=== PATIENT | female | born 1940 | race African-American/Black ===

== ENCOUNTER 2023-05-21 13:32 | Inpatient (IN) | payer MEDICARE, OTHER, SELFPAY ==
[2023-05-21] MEDS ORDERED: Morphine 4 MG/ML VIAL ONE ×2 (14:16→17:52)
[2023-05-21] MEDS ORDERED: Ondansetron PF 4 MG/2 ML Vial ONE (14:16)
[2023-05-21 14:41] LABS: ALT (SGPT) 159 U/L (8-55); AST (SGOT) 298 U/L (5-34); Albumin 3.6 g/dL (3.4-4.8); Alkaline Phosphatase 973 U/L (40-110); Anion Gap 19 mmol/L (10-20); BUN (Urea Nitrogen) 34 mg/dL (9.8-20.1); Calc. Creatinine Clearance 0 mL/min (70-130); Calcium 9.2 mg/dL (7.8-10.44); Carbon Dioxide 17 mmol/L (23-31); Chloride 108 mmol/L (98-107); Estimated GFR 28; Globulin 3.9 g/dL (2.4-3.5); Glucose 165 mg/dL (83-110); Magnesium 1.8 mg/dL (1.6-2.6); Potassium 5.1 mmol/L (3.5-5.1); Protein, Total 7.5 g/dL (5.8-8.1); Sodium 139 mmol/L (136-145)
[2023-05-21 14:52] LABS: SARS-CoV-2 NAA Rapid Test Not Detected (NotDetected)
[2023-05-21 14:52] LABS: Lipase 2053 U/L (8-78)
[2023-05-21 15:02] LABS: Troponin I 0.014 ng/mL (< 0.028)
[2023-05-21 15:04] LABS: Hematocrit 39.1 % (34.9-44.5); Hemoglobin 12.2 g/dL (12.0-15.5); Mean Corpuscular HGB CONC 31.2 g/dL (32.0-36.0); Mean Corpuscular Hemoglobin 27.5 pg (27.0-33.0); Mean Corpuscular Volume 88.1 fl (81.6-98.3); Mean Platelet Volume 11.2 fl (7.4-10.4); Platelet Count 255 10x3/uL (150-450); RBC Distribution Width 14.2 % (11.5-14.5); Red Blood Cell (RBC) Count 4.44 10x6/uL (3.90-5.03); White Blood Cell (WBC) Count 9.1 10x3/uL (3.5-10.5)
[2023-05-21 15:53] LABS: Bilirubin Neg (Negative); Blood, Urine 10 (Negative); Glucose, Urine (Dipstick) Normal (Negative); Ketone, Urine Negative (Negative); Leukocyte Negative (Negative); Nitrite Negative (Negative); Protein, Urine (Dipstick) 15 mg/dl (Neg-Trace); Specific Gravity, Urine 1.005 (1.005-1.030); Urobilinogen Normal mg/dL (Less than 2)
[2023-05-21 15:57] LABS: Clarity Hazy (Clear)
[2023-05-21 16:07] LABS: MDiff Complete? YES
[2023-05-21 16:43] LABS: Bacteria/HPF 2+ HPF (None Seen); CAUTI Indications for Culture Pelvic or flank pain; RBC/HPF 0-3 HPF (0-3); Squamous Epithelial 0-3 HPF (0-3); WBC/HPF 0-3 HPF (0-3)
[2023-05-21 16:45] LABS: Urine Culture Reflex No No
[2023-05-21] MEDS ORDERED: Acetaminophen 325 MG TAB PO PRN (17:09)
[2023-05-21] MEDS ORDERED: HYDROcodone/Acetaminophen 5/325 mg Tablet PO PRN (17:09)
[2023-05-21] MEDS ORDERED: Morphine 4 MG/ML VIAL SLOW IVP PRN (17:09)
[2023-05-21 17:34] LABS: Band 20 % (5-11); Lymphocytes 8 % (21-51); Neutrophil 72 % (42-75)
[2023-05-21 17:35] LABS: Platelet Adequacy Comment Appears Adequate; Platelet Clumps SLIGHT; RBC Morph Comment Within Normal Limits
[2023-05-21] MEDS ORDERED: Piperacillin/Tazobactam 3.375 GM VIAL ONE (17:53)
[2023-05-21] MEDS ORDERED: Pantoprazole 40 MG VIAL ONE (17:54)
[2023-05-21] MEDS: Lactated Ringer's 1,000 ML IV SCH (19:10)
[2023-05-21] MEDS ORDERED: Morphine 4 MG/ML VIAL SLOW IVP SCH (20:00)
[2023-05-21 21:28] VITALS: BMI 25.9
[2023-05-21] MEDS: Piperacillin/Tazobactam 3.375 GM in Sodium Chloride 0.9% 100 ML IVPB SCH (21:54)
[2023-05-21] MEDS: Senokot S 8.6-50 MG TAB PO SCH ×2 (21:55→22:07)
[2023-05-22] MEDS ORDERED: FLU VACC QS2023(65UP)/MF59C/PF 60 MCG/0.5 ML SYRINGE IM ONE (03:45)
[2023-05-22 04:18] LABS: Hematocrit 34.2 % (34.9-44.5); MDiff Complete? YES; Mean Corpuscular HGB CONC 32.2 g/dL (32.0-36.0); Mean Corpuscular Hemoglobin 28.1 pg (27.0-33.0); Mean Corpuscular Volume 87.2 fl (81.6-98.3); Mean Platelet Volume 11.2 fl (7.4-10.4); Platelet Count 230 10x3/uL (150-450); RBC Distribution Width 14.5 % (11.5-14.5); Red Blood Cell (RBC) Count 3.92 10x6/uL (3.90-5.03); White Blood Cell (WBC) Count 23.1 10x3/uL (3.5-10.5)
[2023-05-22 04:31] LABS: ALT (SGPT) 250 U/L (8-55); AST (SGOT) 409 U/L (5-34); Alkaline Phosphatase 802 U/L (40-110); Anion Gap 18 mmol/L (10-20); BUN (Urea Nitrogen) 30 mg/dL (9.8-20.1); Bilirubin, Total 3.2 mg/dL (0.2-1.2); Calc. Creatinine Clearance 26 mL/min (70-130); Calcium 8.3 mg/dL (7.8-10.44); Carbon Dioxide 20 mmol/L (23-31); Chloride 110 mmol/L (98-107); Estimated GFR 29; Globulin 3.4 g/dL (2.4-3.5); Glucose 149 mg/dL (83-110); Potassium 5.7 mmol/L (3.5-5.1); Protein, Total 6.4 g/dL (5.8-8.1); Sodium 142 mmol/L (136-145)
[2023-05-22 04:39] LABS: Platelet Adequacy Comment Appears Adequate; RBC Morph Comment Within Normal Limits
[2023-05-22 04:40] LABS: Band 24 % (5-11); Lymphocytes 6 % (21-51); Monocytes 4 % (0-10); Neutrophil 66 % (42-75)
[2023-05-22] MEDS: Lactated Ringer's 1,000 ML IV SCH ×3 (05:54→19:04)
[2023-05-22] MEDS: Piperacillin/Tazobactam 3.375 GM in Sodium Chloride 0.9% 100 ML IVPB SCH ×2 (06:01→14:33)
[2023-05-22] MEDS: Senokot S 8.6-50 MG TAB PO SCH ×2 (08:57→21:20)
[2023-05-22] MEDS: Polyethylene Glycol 3350 17 GM Packet PO SCH (08:58)
[2023-05-22] MEDS ORDERED: Dextrose 50% Abboject 50 ML SYRINGE SLOW IVP SCH (09:01)
[2023-05-22] MEDS ORDERED: Vancomycin Dose by Levels Sliding Scale (Wt <71) FS SCH (09:15)
[2023-05-22] MEDS ORDERED: Furosemide 20 MG (2 mL) VIAL SLOW IVP SCH (09:15)
[2023-05-22] MEDS ORDERED: Insulin Regular 300 UNITS/3 ML VIAL IVP SCH (09:15)
[2023-05-22] MEDS ORDERED: VANCOMYCIN 1.25 GM/250 ML BAG 1.25 GM in Premix 1 BAG IVPB SCH (09:30)
[2023-05-22] MEDS ORDERED: Iopamidol-M 300 61% 15 ML VIAL ONE (11:40)
[2023-05-22] MEDS ORDERED: Indomethacin 50 MG SUPP ONE (11:40)
[2023-05-22] MEDS ORDERED: Ondansetron ORAL SOLN. 4 MG/5 ML UDCUP PO PRN (17:18)
[2023-05-22 17:58] LABS: Anion Gap 18 mmol/L (10-20); BUN (Urea Nitrogen) 31 mg/dL (9.8-20.1); Calc. Creatinine Clearance 24 mL/min (70-130); Calcium 8.4 mg/dL (7.8-10.44); Carbon Dioxide 17 mmol/L (23-31); Chloride 109 mmol/L (98-107); Estimated GFR 26; Glucose 150 mg/dL (83-110); Potassium 5.2 mmol/L (3.5-5.1); Sodium 139 mmol/L (136-145)
[2023-05-22] MEDS ORDERED: Acetaminophen 500 MG TAB PO SCH (18:00)
[2023-05-22] MEDS ORDERED: Scopolamine 1 mg/72 hour Patch TD SCH (18:00)
[2023-05-22] MEDS: Sodium Chloride 0.45% 1,000 ML IV SCH (19:03)
[2023-05-22] MEDS: Acetaminophen 500 MG TAB PO SCH (21:19)
[2023-05-23] MEDS: Sodium Chloride 0.45% 1,000 ML IV SCH ×2 (00:16→07:36)
[2023-05-23] MEDS: Piperacillin/Tazobactam 3.375 GM in Sodium Chloride 0.9% 100 ML IVPB SCH ×2 (04:15→14:07)
[2023-05-23 05:36] LABS: #Eosinphils 0.3 10x3/uL (0.0-0.5); #Monocytes 0.5 10x3/uL (0.0-1.1); #Neutrophils 12.2 10x3/uL (1.5-8.4); %Basophils 0.3 % (0.0-2.0); %Eosinophils 2.2 % (0.0-6.0); %Lymphocytes 10.1 % (18.0-47.0); %Monocytes 3.5 % (0.0-10.0); %Neutrophils 82.7 % (40.0-75.0); Hematocrit 32.6 % (34.9-44.5); Hemoglobin 10.3 g/dL (12.0-15.5); Mean Corpuscular HGB CONC 31.6 g/dL (32.0-36.0); Mean Corpuscular Hemoglobin 27.2 pg (27.0-33.0); Mean Corpuscular Volume 86.2 fl (81.6-98.3); Mean Platelet Volume 11.5 fl (7.4-10.4); Platelet Count 225 10x3/uL (150-450); RBC Distribution Width 14.6 % (11.5-14.5); Red Blood Cell (RBC) Count 3.78 10x6/uL (3.90-5.03); White Blood Cell (WBC) Count 14.8 10x3/uL (3.5-10.5)
[2023-05-23 05:46] LABS: ALT (SGPT) 158 U/L (8-55); AST (SGOT) 139 U/L (5-34); Albumin 2.7 g/dL (3.4-4.8); Alkaline Phosphatase 650 U/L (40-110); Anion Gap 14 mmol/L (10-20); BUN (Urea Nitrogen) 32 mg/dL (9.8-20.1); Calc. Creatinine Clearance 23 mL/min (70-130); Calcium 7.8 mg/dL (7.8-10.44); Carbon Dioxide 20 mmol/L (23-31); Chloride 108 mmol/L (98-107); Estimated GFR 25; Globulin 3.2 g/dL (2.4-3.5); Glucose 90 mg/dL (83-110); Potassium 4.3 mmol/L (3.5-5.1); Protein, Total 5.9 g/dL (5.8-8.1); Sodium 138 mmol/L (136-145)
[2023-05-23] MEDS: Acetaminophen 500 MG TAB PO SCH ×5 (07:51→21:53)
[2023-05-23] MEDS: Polyethylene Glycol 3350 17 GM Packet PO SCH (07:52)
[2023-05-23] MEDS: Senokot S 8.6-50 MG TAB PO SCH ×2 (07:52→21:54)
[2023-05-23] MEDS ORDERED: EPINEPHrine 1 MG/ML AMP ONE (08:55)
[2023-05-23] MEDS ORDERED: Bupivacaine PF 0.5% 30 ML VIAL ONE (08:55)
[2023-05-23] MEDS: traMADol HCl 50 MG TAB PO PRN (10:29)
[2023-05-23] MEDS: Ondansetron ODT 4 MG TAB PO PRN (10:30)
[2023-05-23] MEDS ORDERED: Morphine 2 MG/ML VIAL SLOW IVP PRN ×2 (13:22→13:23)
[2023-05-23] MEDS ORDERED: Ketorolac Tromethamine 30 MG (1 mL) VIAL IVP SCH (14:00)
[2023-05-24] MEDS: Piperacillin/Tazobactam 3.375 GM in Sodium Chloride 0.9% 100 ML IVPB SCH (03:05)
[2023-05-24 04:51] LABS: ALT (SGPT) 117 U/L (8-55); AST (SGOT) 87 U/L (5-34); Albumin 2.5 g/dL (3.4-4.8); Alkaline Phosphatase 486 U/L (40-110); Anion Gap 16 mmol/L (10-20); BUN (Urea Nitrogen) 34 mg/dL (9.8-20.1); Bilirubin, Total 1.5 mg/dL (0.2-1.2); Calc. Creatinine Clearance 23 mL/min (70-130); Calcium 7.9 mg/dL (7.8-10.44); Carbon Dioxide 16 mmol/L (23-31); Chloride 108 mmol/L (98-107); Estimated GFR 24; Globulin 3.2 g/dL (2.4-3.5); Glucose 179 mg/dL (83-110); Potassium 4.9 mmol/L (3.5-5.1); Protein, Total 5.7 g/dL (5.8-8.1); Sodium 135 mmol/L (136-145)
[2023-05-24 05:03] LABS: Hematocrit 32.5 % (34.9-44.5); Hemoglobin 10.3 g/dL (12.0-15.5); Mean Corpuscular HGB CONC 31.7 g/dL (32.0-36.0); Mean Corpuscular Volume 85.3 fl (81.6-98.3); Mean Platelet Volume 11.6 fl (7.4-10.4); Platelet Count 261 10x3/uL (150-450); RBC Distribution Width 14.6 % (11.5-14.5); Red Blood Cell (RBC) Count 3.81 10x6/uL (3.90-5.03); White Blood Cell (WBC) Count 22.4 10x3/uL (3.5-10.5)
[2023-05-24 05:42] LABS: Band 24 % (5-11); Lymphocytes 3 % (21-51); Metamyelocyte 3 % (0-0); Monocytes 1 % (0-10); Reactive Lymphocytes 1 % (0-10)
[2023-05-24 05:43] LABS: Neutrophil 67 % (42-75)
[2023-05-24 05:46] LABS: Platelet Adequacy Comment Appears Adequate
[2023-05-24 05:47] LABS: MDiff Complete? YES
[2023-05-24] MEDS ORDERED: Amoxicillin/Potassium Clav 875 MG TAB PO SCH (09:00)
[2023-05-24] MEDS: Acetaminophen 500 MG TAB PO SCH ×4 (09:40→20:16)
[2023-05-24] MEDS: Senokot S 8.6-50 MG TAB PO SCH ×2 (09:40→20:19)
[2023-05-24] MEDS: Polyethylene Glycol 3350 17 GM Packet PO SCH (09:40)
[2023-05-24] MEDS: Ondansetron PF 4 MG/2 ML Vial IVP PRN (10:08)
[2023-05-24] MEDS ORDERED: Enoxaparin 40 MG (0.4 mL) SYRINGE SC SCH (11:00)
[2023-05-24] MEDS: Sodium Chloride 0.9% 1,000 ML IV SCH ×2 (13:51→20:20)
[2023-05-24] MEDS ORDERED: LevoFLOXacin 750 MG TAB PO SCH (14:00)
[2023-05-25 04:17] LABS: Mean Corpuscular HGB CONC 32.3 g/dL (32.0-36.0); Mean Corpuscular Hemoglobin 27.2 pg (27.0-33.0); Mean Corpuscular Volume 84.5 fl (81.6-98.3); Mean Platelet Volume 11.9 fl (7.4-10.4); Platelet Count 284 10x3/uL (150-450); RBC Distribution Width 14.6 % (11.5-14.5); Red Blood Cell (RBC) Count 3.67 10x6/uL (3.90-5.03); White Blood Cell (WBC) Count 25.8 10x3/uL (3.5-10.5)
[2023-05-25] MEDS: Sodium Chloride 0.9% 1,000 ML IV SCH ×2 (04:23→11:17)
[2023-05-25 04:46] LABS: Band 20 % (5-11); Lymphocytes 1 % (21-51); Metamyelocyte 1 % (0-0); Monocytes 5 % (0-10); Neutrophil 73 % (42-75)
[2023-05-25 04:49] LABS: Platelet Adequacy Comment Appears Adequate
[2023-05-25 04:50] LABS: MDiff Complete? YES
[2023-05-25] MEDS: Acetaminophen 500 MG TAB PO SCH ×5 (09:08→20:57)
[2023-05-25] MEDS: Polyethylene Glycol 3350 17 GM Packet PO SCH ×2 (09:08→09:17)
[2023-05-25] MEDS: Senokot S 8.6-50 MG TAB PO SCH ×3 (09:08→20:57)
[2023-05-25] MEDS: Enoxaparin 30 MG (0.3 mL) SYRINGE SC SCH (09:08)
[2023-05-25] MEDS ORDERED: metroNIDAZOLE 500 MG in Premix 1 BAG IVPB SCH (14:00)
[2023-05-25] MEDS: cefTRIAXone\\ROCEPHIN 2 GM in Sodium Chloride 0.9% 100 ML IVPB SCH (16:08)
[2023-05-25] MEDS: traMADol HCl 50 MG TAB PO PRN (20:56)
[2023-05-25] MEDS: Ondansetron ODT 4 MG TAB PO PRN (20:57)
[2023-05-25] MEDS ORDERED: LevoFLOXacin 500 MG TAB PO SCH (21:00)
[2023-05-26 04:57] LABS: #Basophils 0.1 10x3/uL (0.0-0.2); #Eosinphils 0.2 10x3/uL (0.0-0.5); #Neutrophils 21.4 10x3/uL (1.5-8.4); %Basophils 0.2 % (0.0-2.0); %Eosinophils 0.6 % (0.0-6.0); %Lymphocytes 7.8 % (18.0-47.0); %Monocytes 4.1 % (0.0-10.0); %Neutrophils 86.3 % (40.0-75.0); Hematocrit 31.9 % (34.9-44.5); Hemoglobin 10.5 g/dL (12.0-15.5); Mean Corpuscular HGB CONC 32.9 g/dL (32.0-36.0); Mean Corpuscular Volume 85.1 fl (81.6-98.3); Mean Platelet Volume 11.6 fl (7.4-10.4); Platelet Count 293 10x3/uL (150-450); Red Blood Cell (RBC) Count 3.75 10x6/uL (3.90-5.03); White Blood Cell (WBC) Count 24.9 10x3/uL (3.5-10.5)
[2023-05-26] MEDS ORDERED: LevoFLOXacin 500 MG TAB PO SCH (06:00)
[2023-05-26] MEDS: Enoxaparin 30 MG (0.3 mL) SYRINGE SC SCH (08:43)
[2023-05-26] MEDS: Acetaminophen 500 MG TAB PO SCH ×4 (08:44→21:24)
[2023-05-26] MEDS: Polyethylene Glycol 3350 17 GM Packet PO SCH (08:44)
[2023-05-26] MEDS: Senokot S 8.6-50 MG TAB PO SCH ×2 (08:44→21:24)
[2023-05-26] MEDS: cefTRIAXone\\ROCEPHIN 2 GM in Sodium Chloride 0.9% 100 ML IVPB SCH (17:09)
[2023-05-26] MEDS: Sodium Chloride 0.9% 1,000 ML IV SCH (17:09)
[2023-05-26] MEDS: traMADol HCl 50 MG TAB PO PRN (21:22)
[2023-05-27 03:59] LABS: #Basophils 0.1 10x3/uL (0.0-0.2); #Eosinphils 0.2 10x3/uL (0.0-0.5); #Neutrophils 15.6 10x3/uL (1.5-8.4); %Basophils 0.3 % (0.0-2.0); %Eosinophils 0.9 % (0.0-6.0); %Monocytes 5.4 % (0.0-10.0); %Neutrophils 82.8 % (40.0-75.0); Hematocrit 28.8 % (34.9-44.5); Hemoglobin 9.2 g/dL (12.0-15.5); Mean Corpuscular HGB CONC 31.9 g/dL (32.0-36.0); Mean Corpuscular Hemoglobin 27.5 pg (27.0-33.0); Mean Corpuscular Volume 86.2 fl (81.6-98.3); Mean Platelet Volume 11.6 fl (7.4-10.4); Platelet Count 303 10x3/uL (150-450); Red Blood Cell (RBC) Count 3.34 10x6/uL (3.90-5.03); White Blood Cell (WBC) Count 18.9 10x3/uL (3.5-10.5)
[2023-05-27] MEDS: Acetaminophen 500 MG TAB PO SCH ×4 (08:15→22:15)
[2023-05-27] MEDS: Enoxaparin 30 MG (0.3 mL) SYRINGE SC SCH (08:16)
[2023-05-27] MEDS: Senokot S 8.6-50 MG TAB PO SCH ×2 (08:17→22:16)
[2023-05-27] MEDS: Polyethylene Glycol 3350 17 GM Packet PO SCH (08:17)
[2023-05-27] MEDS: Sodium Chloride 0.9% 1,000 ML IV SCH (10:33)
[2023-05-27] MEDS: cefTRIAXone\\ROCEPHIN 2 GM in Sodium Chloride 0.9% 100 ML IVPB SCH (17:24)
[2023-05-27] MEDS: Ondansetron PF 4 MG/2 ML Vial IVP PRN (22:15)
[2023-05-28 05:20] LABS: #Basophils 0.1 10x3/uL (0.0-0.2); #Eosinphils 0.3 10x3/uL (0.0-0.5); #Monocytes 1.1 10x3/uL (0.0-1.1); #Neutrophils 10.9 10x3/uL (1.5-8.4); %Basophils 0.4 % (0.0-2.0); %Eosinophils 1.7 % (0.0-6.0); %Lymphocytes 13.6 % (18.0-47.0); %Monocytes 7.5 % (0.0-10.0); %Neutrophils 74.6 % (40.0-75.0); Hematocrit 31.1 % (34.9-44.5); Hemoglobin 10.2 g/dL (12.0-15.5); Mean Corpuscular HGB CONC 32.8 g/dL (32.0-36.0); Mean Corpuscular Hemoglobin 28.5 pg (27.0-33.0); Mean Corpuscular Volume 86.9 fl (81.6-98.3); Mean Platelet Volume 11.5 fl (7.4-10.4); Platelet Count 315 10x3/uL (150-450); RBC Distribution Width 15.1 % (11.5-14.5); Red Blood Cell (RBC) Count 3.58 10x6/uL (3.90-5.03); White Blood Cell (WBC) Count 14.6 10x3/uL (3.5-10.5)
[2023-05-28] MEDS: Senokot S 8.6-50 MG TAB PO SCH ×2 (08:49→20:13)
[2023-05-28] MEDS: Polyethylene Glycol 3350 17 GM Packet PO SCH (08:49)
[2023-05-28] MEDS: Acetaminophen 500 MG TAB PO SCH ×4 (09:27→20:12)
[2023-05-28] MEDS: Enoxaparin 30 MG (0.3 mL) SYRINGE SC SCH (09:28)
[2023-05-28] MEDS: cefTRIAXone\\ROCEPHIN 2 GM in Sodium Chloride 0.9% 100 ML IVPB SCH (16:23)
[2023-05-29 03:55] LABS: #Basophils 0.1 10x3/uL (0.0-0.2); #Eosinphils 0.2 10x3/uL (0.0-0.5); #Monocytes 1.2 10x3/uL (0.0-1.1); #Neutrophils 10.4 10x3/uL (1.5-8.4); %Basophils 0.5 % (0.0-2.0); %Eosinophils 1.5 % (0.0-6.0); %Lymphocytes 14.4 % (18.0-47.0); %Monocytes 8.3 % (0.0-10.0); %Neutrophils 72.6 % (40.0-75.0); Hematocrit 31.1 % (34.9-44.5); Mean Corpuscular HGB CONC 32.2 g/dL (32.0-36.0); Mean Corpuscular Hemoglobin 27.7 pg (27.0-33.0); Mean Corpuscular Volume 86.1 fl (81.6-98.3); Mean Platelet Volume 11.2 fl (7.4-10.4); Platelet Count 380 10x3/uL (150-450); Red Blood Cell (RBC) Count 3.61 10x6/uL (3.90-5.03); White Blood Cell (WBC) Count 14.3 10x3/uL (3.5-10.5)
[2023-05-29 04:03] LABS: ALT (SGPT) 27 U/L (8-55); AST (SGOT) 26 U/L (5-34); Albumin 2.5 g/dL (3.4-4.8); Alkaline Phosphatase 318 U/L (40-110); Anion Gap 13 mmol/L (10-20); BUN (Urea Nitrogen) 16 mg/dL (9.8-20.1); Bilirubin, Total 0.7 mg/dL (0.2-1.2); Calc. Creatinine Clearance 39 mL/min (70-130); Calcium 7.5 mg/dL (7.8-10.44); Carbon Dioxide 17 mmol/L (23-31); Chloride 112 mmol/L (98-107); Estimated GFR 46; Globulin 3.3 g/dL (2.4-3.5); Glucose 85 mg/dL (83-110); Potassium 4.1 mmol/L (3.5-5.1); Protein, Total 5.8 g/dL (5.8-8.1); Sodium 138 mmol/L (136-145)
[2023-05-29] MEDS: Acetaminophen 500 MG TAB PO SCH ×4 (09:26→21:53)
[2023-05-29] MEDS: Enoxaparin 30 MG (0.3 mL) SYRINGE SC SCH (09:26)
[2023-05-29] MEDS: Polyethylene Glycol 3350 17 GM Packet PO SCH (09:33)
[2023-05-29] MEDS: Senokot S 8.6-50 MG TAB PO SCH ×2 (09:33→21:56)
[2023-05-29] MEDS: cefTRIAXone\\ROCEPHIN 2 GM in Sodium Chloride 0.9% 100 ML IVPB SCH (17:23)
[2023-05-30 08:35] VITALS: BP 172/73; TEMP 98.3
[2023-05-30] MEDS: Acetaminophen 500 MG TAB PO SCH (09:59)
[2023-05-30] MEDS: Enoxaparin 30 MG (0.3 mL) SYRINGE SC SCH (09:59)
[2023-05-30] MEDS: Senokot S 8.6-50 MG TAB PO SCH (10:00)
[2023-05-30] MEDS: Polyethylene Glycol 3350 17 GM Packet PO SCH (10:00)
== END 2023-05-30 11:55 | disposition home or self-care (01) | DRG 871 ==
LOC: CSHERS 13:32 → SUATTDRO 13:32 → CSHERHOLD 16:30 → CSHTELE 21:11 → OBSVTOIN 05-22 08:59
PROVIDERS: ADMIT Internal Medicine; ATTEND Internal Medicine
DX: A41.9 Sepsis, unspecified organism (principal); K85.90 Acute pancreatitis without necrosis or infection, unspecified; K80.40 Calculus of bile duct with cholecystitis, unspecified, without obstruction; R65.20 Severe sepsis without septic shock; I10 Essential (primary) hypertension; Z98.890 Other specified postprocedural states
CPT/HCPCS: 36415; 71045; 74176; 74330; 80053; 81001; 83036; 83690; 83735; 83880; 84439; 84443; 84484; 85025; 87040; 87077; 87086; 87149; 87186; 88304; 93005; 96372; 96374; 96375; 96376; C1725; C1889; C9113; G0378; J0171; J0696; J1650; J1885; J2270; J2405; J2543; J3370; J3490; J7050; J7120; Q0162; Q9967; S0020